=== PATIENT | female | born 1975 | race Caucasian/White ===

== ENCOUNTER → 2017-01-01 | Outpatient (CLI) | payer OTHER | LOC: HPND 14:18 | PROVIDERS: ATTEND Obstetrics & Gynecology | DX: O09.529 Supervision of elderly multigravida, unspecified trimester (principal) | CPT/HCPCS: 76811 ==

== ENCOUNTER → 2017-02-05 | Outpatient (CLI) | payer OTHER | LOC: HPND 12:48 | PROVIDERS: ATTEND Obstetrics & Gynecology | DX: O09.522 Supervision of elderly multigravida, second trimester (principal) | CPT/HCPCS: 76816 ==

== ENCOUNTER 2017-05-22 05:17 | Inpatient (IN) | payer OTHER ==
[~2017-05-22] VITALS: Ht 170.2 cm; Wt 93.0 kg
[2017-05-22] VITALS (58 sets, daily range): BP systolic 118–163; BP diastolic 69–88; PULSE 58–219; RESP 16–18; TEMP 98–99.4
[2017-05-22 06:38] LABS: AUTOMATED NEUTROPHIL # 7.8 TH/MM3 (1.8-7.7); BASOPHIL % 0.3 % (0.0-2.0); EOSINOPHIL # 0.1 TH/MM3 (0-0.4); EOSINOPHIL % 0.8 % (0.0-4.0); HEMATOCRIT 31.3 % (35.0-46.0); HEMO FLAGS DIFF FINAL; LYMPH % 20.7 % (9.0-44.0); LYMPHOCYTE # 2.2 TH/MM3 (1.0-4.8); MEAN CELL VOLUME 87.9 FL (80.0-100.0); MEAN CORPUSCULAR HEMOGLOBIN 29.3 PG (27.0-34.0); MEAN CORPUSCULAR HGB CONC 33.4 % (32.0-36.0); MONO % 5.3 % (0.0-8.0); NEUT % 72.9 % (16.0-70.0); PLATELET COUNT 200 TH/MM3 (150-450); RED BLOOD COUNT 3.56 MIL/MM3 (4.00-5.30); RED CELL DISTRIBUTION WIDTH 16.6 % (11.6-17.2); WHITE BLOOD COUNT 10.7 TH/MM3 (4.0-11.0)
[2017-05-22 07:02] LABS: BACTERIA, URINE FEW /hpf; BLOOD, URINE SMALL (NEG); GLUCOSE,URINE NEG (NEG); HYALINE CAST, URINE 1 /lpf (RARE); KETONE, URINE NEG (NEG); MUCUS URINE FEW /lpf (OCC); NITRITE,URINE NEG (NEG); PH, URINE 6.5 (5.0-8.5); SQUAMOUS EPITHELIAL CELL URINE 3 /hpf (0-5); URINE COLOR YELLOW (YELLW/STRAW)
[2017-05-22 07:21] LABS: COMMENT (UR) CULT NOT INDICATED; CULTURE IF INDICATED CULT NOT INDICATED
[2017-05-22] MEDS ORDERED: OXYTOCIN 30 UNITS-500ML PREMIX 500 ML ONE (08:02)
[2017-05-22] MEDS ORDERED: LACTATED RINGER'S 1000 ML BOLUS IV PRN (08:15)
[2017-05-22] MEDS ORDERED: OXYTOCIN 30 UNITS 500ML PREMIX IV ONE (08:15)
[2017-05-22] MEDS ORDERED: NS 500 ML BOLUS IV PRN (08:15)
[2017-05-22] MEDS ORDERED: NS 1000 ML IV PRN (08:15)
[2017-05-22] MEDS ORDERED: MINERAL OIL 10 ML VIAL TOPICAL PRN (08:15)
[2017-05-22] MEDS ORDERED: LIDOCAINE HCL 1% 50 ML VIAL I-DERMAL PRN (08:15)
[2017-05-22] MEDS ORDERED: CITRIC ACID-SODIUM CITRATE LIQ 30 ML UDC PO SCH (08:15)
[2017-05-22] MEDS ORDERED: LIDOCAINE HCL 1% 50 ML VIAL INFIL PRN (08:15)
[2017-05-22] MEDS: LACTATED RINGER'S 1000 ML IV SCH ×2 (08:39→11:46)
[2017-05-22] MEDS: OXYTOCIN 30 UNITS/NS 500ML PREMIX IV SCH ×2 (08:40→16:08)
[2017-05-22] MEDS ORDERED: fentaNYL 2MCG-BUPIV 0.125% INJ 100 ML ONE (14:06)
[2017-05-22] MEDS ORDERED: DIPHTH/TETANUS/ACEL PERTUSSIS (BOOSTER) 0.5 ML VIAL/PFS IM ONE (16:00)
[2017-05-22] MEDS ORDERED: MEASLES, MUMPS, RUBELLA VACCINE 0.5 ML VIAL SQ ONE (16:00)
[2017-05-22] MEDS ORDERED: PREN29TA PO (16:18)
[2017-05-22] MEDS ORDERED: GLYB2.5T3 PO (16:19)
[2017-05-22] MEDS ORDERED: fentaNYL 2MCG-BUPIV 0.125% 100 ML EPIDURAL SCH (16:30)
[2017-05-22] MEDS ORDERED: ePHEDrine/NS 25 MG/5 ML SYR IV PUSH PRN (16:30)
[2017-05-22] MEDS ORDERED: NO SYSTEM NARCOTICS PRN (16:30)
[2017-05-22] MEDS ORDERED: DO NOT ADMINISTER ANTICOAGULANTS PRN (16:30)
[2017-05-22] MEDS ORDERED: LIDOCAINE HCL 1% 50 ML VIAL ONE (17:51)
[2017-05-22] MEDS ORDERED: SODIUM CHLORIDE 0.9% 20 ML VIAL ONE (17:58)
[2017-05-22] MEDS ORDERED: LIDOCAINE 2%/EPINEPHrine PF 1:200,000 20ML SDV ONE (17:59)
--- NOTE | 2017-05-22 18:59 | PD.OB.DELI ---
Weeks gestation: 39 Gest age assessed date: May 22, 2017 Gest age assessed time: 07:00 Pt started active labor?: No Medical induction of labor?: Yes Medical induction start date: May 22, 2017 Medical induction start time: 07:00 Artificial rupture of membrane: Yes Artificial ROM date: May 22, 2017 Artifical ROM time: 08:00 Anesthesia: Epidural Episiotomy: None Vaginal Delivery: Normal Presentation: Occiput anterior Nuchal Cord: None Delayed cord clamping (45 sec): Yes Infant: Female, Single Delivery date: May 22, 2017 Delivery time: 18:29 One Minute : 8 Five Minute : 9 Weight: 8-11 Placenta: Spontaneous delivery, Intact, 3 vessel cord Laceration: Vaginal laceration, 2 deg Repair: Chromic interrupted, Chromic running Estimated blood loss: 300 cc Kasey Barraza MD May 22, 2017 18:59
[2017-05-22] MEDS ORDERED: ALUMINUM/MAGNESIUM/SIMETH 30 ML CUP PO PRN (19:00)
[2017-05-22] MEDS ORDERED: oxyCODONE/ACETAMINOPHEN 5 MG/325 MG TAB PO PRN (19:00)
[2017-05-22] MEDS ORDERED: ONDANSETRON ODT 4 MG TAB PO PRN (19:00)
[2017-05-22] MEDS ORDERED: DOCUSATE SODIUM 50 MG/SENNA 8.6 MG TAB PO PRN (19:00)
[2017-05-22] MEDS ORDERED: OXYTOCIN 30 UNITS-500ML PREMIX 500 ML IV SCH (19:00)
[2017-05-22] MEDS ORDERED: SODIUM CHLORIDE 0.9% FLUSH 10 ML FLUSH IV FLUSH PRN (19:00)
[2017-05-22] MEDS ORDERED: ZOLPIDEM TARTRATE 5 MG TAB PO PRN (19:00)
[2017-05-22] MEDS ORDERED: ACETAMINOPHEN 325 MG TAB PO PRN (19:00)
--- NOTE | 2017-05-22 19:02 | PD.LABORPN ---
Subjective Subjective delayed entry...750 am pt reports ctxs Objective Vital Signs Vital Signs Date Time Temp Pulse Resp B/P (MAP) Pulse Ox O2 Delivery O2 Flow Rate FiO2 05/22/17 18:12 94 154/85 (108) 05/22/17 17:30 84 136/87 (103) 05/22/17 17:01 18 05/22/17 17:00 70 153/77 (102) 05/22/17 16:45 98.1 05/22/17 16:45 18 05/22/17 16:31 73 159/85 (109) 05/22/17 16:10 74 05/22/17 16:05 76 05/22/17 16:01 78 141/85 (103) 05/22/17 16:00 82 05/22/17 15:55 66 05/22/17 15:50 81 05/22/17 15:46 87 05/22/17 15:46 152/76 (101) 05/22/17 15:45 74 05/22/17 15:41 82 129/72 (91) 05/22/17 15:40 79 05/22/17 15:36 70 147/71 (96) 05/22/17 15:35 86 05/22/17 15:30 64 145/72 (96) 05/22/17 15:26 77 136/71 (92) 05/22/17 15:21 63 140/72 (94) 05/22/17 15:20 80 05/22/17 15:16 67 146/74 (98) 05/22/17 15:15 64 05/22/17 15:14 16 05/22/17 15:05 82 05/22/17 15:01 63 142/69 (93) 05/22/17 15:00 83 05/22/17 14:56 83 130/73 (92) 05/22/17 14:55 90 05/22/17 14:51 87 142/70 (94) 05/22/17 14:50 81 05/22/17 14:46 81 146/73 (97) 05/22/17 14:45 92 05/22/17 14:45 18 05/22/17 14:41 95 142/81 (101) 05/22/17 14:40 86 05/22/17 14:36 82 155/69 (97) 05/22/17 14:35 83 05/22/17 14:30 86 05/22/17 13:04 63 159/87 (111) 05/22/17 12:45 98.6 05/22/17 12:26 72 140/86 (104) 05/22/17 11:51 66 153/82 (105) 05/22/17 11:30 18 Objective Pelvic Exam: Cervix: 3-4/60/-3 AROM with clear fluid Dilatation: [-] Effacement: [-] Station: [-] Presentation: [-] Membranes: [intact or ruptured] Uterine Contractions: [-] FHT's: Category: [-] Baseline: [-] Reactive: [-] Variability: [-] Decels: [-] Weeks Gestation: 39 Gest Age Assessed Date: May 22, 2017 Gest Age Assessed Time: 07:00 Pt started active labor?: No Medical induction of labor?: Yes Medical induction start date: May 22, 2017 Medical induction start time: 07:00 Artificial rupture of membrane: Yes Artificial ROM date: May 22, 2017 Artifical ROM time: 08:00 Assessment/Plan Assessment and Plan 41 yo WF at 39 wks with GDM controlled with glyburide with good sugars for induction 1. begin Kasey Zhao MD May 22, 2017 19:01
--- NOTE | 2017-05-22 19:03 | PD.LABORPN ---
Subjective Subjective late entry...1 pm...pt co pain Objective Vital Signs Vital Signs Date Time Temp Pulse Resp B/P (MAP) Pulse Ox O2 Delivery O2 Flow Rate FiO2 05/22/17 18:12 94 154/85 (108) 05/22/17 17:30 84 136/87 (103) 05/22/17 17:01 18 05/22/17 17:00 70 153/77 (102) 05/22/17 16:45 98.1 05/22/17 16:45 18 05/22/17 16:31 73 159/85 (109) 05/22/17 16:10 74 05/22/17 16:05 76 05/22/17 16:01 78 141/85 (103) 05/22/17 16:00 82 05/22/17 15:55 66 05/22/17 15:50 81 05/22/17 15:46 87 05/22/17 15:46 152/76 (101) 05/22/17 15:45 74 05/22/17 15:41 82 129/72 (91) 05/22/17 15:40 79 05/22/17 15:36 70 147/71 (96) 05/22/17 15:35 86 05/22/17 15:30 64 145/72 (96) 05/22/17 15:26 77 136/71 (92) 05/22/17 15:21 63 140/72 (94) 05/22/17 15:20 80 05/22/17 15:16 67 146/74 (98) 05/22/17 15:15 64 05/22/17 15:14 16 05/22/17 15:05 82 05/22/17 15:01 63 142/69 (93) 05/22/17 15:00 83 05/22/17 14:56 83 130/73 (92) 05/22/17 14:55 90 05/22/17 14:51 87 142/70 (94) 05/22/17 14:50 81 05/22/17 14:46 81 146/73 (97) 05/22/17 14:45 92 05/22/17 14:45 18 05/22/17 14:41 95 142/81 (101) 05/22/17 14:40 86 05/22/17 14:36 82 155/69 (97) 05/22/17 14:35 83 05/22/17 14:30 86 05/22/17 13:04 63 159/87 (111) 05/22/17 12:45 98.6 05/22/17 12:26 72 140/86 (104) 05/22/17 11:51 66 153/82 (105) 05/22/17 11:30 18 Objective Pelvic Exam: Cervix: 5/70/-2 Dilatation: [-] Effacement: [-] Station: [-] Presentation: [-] Membranes: [intact or ruptured] Uterine Contractions: [-] FHT's: Category: 150s with good BTB variabilty, reactive, occ variable, no lates Baseline: [-] Reactive: [-] Variability: [-] Decels: [-] Weeks Gestation: 39 Gest Age Assessed Date: May 22, 2017 Gest Age Assessed Time: 07:00 Pt started active labor?: No Medical induction of labor?: Yes Medical induction start date: May 22, 2017 Medical induction start time: 07:00 Artificial rupture of membrane: Yes Artificial ROM date: May 22, 2017 Artifical ROM time: 08:00 Assessment/Plan Assessment and Plan IUP at 39 wks with GDM for induction 1. continue pitocin , expectant management Kasey Barraza MD May 22, 2017 19:03
--- NOTE | 2017-05-22 19:06 | PD.LABORPN ---
Subjective Subjective late entry 445pm...pt with epidural and comfortable Objective Vital Signs Vital Signs Date Time Temp Pulse Resp B/P (MAP) Pulse Ox O2 Delivery O2 Flow Rate FiO2 05/22/17 18:12 94 154/85 (108) 05/22/17 17:30 84 136/87 (103) 05/22/17 17:01 18 05/22/17 17:00 70 153/77 (102) 05/22/17 16:45 98.1 05/22/17 16:45 18 05/22/17 16:31 73 159/85 (109) 05/22/17 16:10 74 05/22/17 16:05 76 05/22/17 16:01 78 141/85 (103) 05/22/17 16:00 82 05/22/17 15:55 66 05/22/17 15:50 81 05/22/17 15:46 87 05/22/17 15:46 152/76 (101) 05/22/17 15:45 74 05/22/17 15:41 82 129/72 (91) 05/22/17 15:40 79 05/22/17 15:36 70 147/71 (96) 05/22/17 15:35 86 05/22/17 15:30 64 145/72 (96) 05/22/17 15:26 77 136/71 (92) 05/22/17 15:21 63 140/72 (94) 05/22/17 15:20 80 05/22/17 15:16 67 146/74 (98) 05/22/17 15:15 64 05/22/17 15:14 16 05/22/17 15:05 82 05/22/17 15:01 63 142/69 (93) 05/22/17 15:00 83 05/22/17 14:56 83 130/73 (92) 05/22/17 14:55 90 05/22/17 14:51 87 142/70 (94) 05/22/17 14:50 81 05/22/17 14:46 81 146/73 (97) 05/22/17 14:45 92 05/22/17 14:45 18 05/22/17 14:41 95 142/81 (101) 05/22/17 14:40 86 05/22/17 14:36 82 155/69 (97) 05/22/17 14:35 83 05/22/17 14:30 86 05/22/17 13:04 63 159/87 (111) 05/22/17 12:45 98.6 05/22/17 12:26 72 140/86 (104) 05/22/17 11:51 66 153/82 (105) 05/22/17 11:30 18 Objective Pelvic Exam: Cervix: 6/70/-2 Dilatation: [-] Effacement: [-] Station: [-] Presentation: [-] Membranes: [intact or ruptured] Uterine Contractions: [-] FHT's: Category: 150's reactive with ctxs q 3-5 min Baseline: [-] Reactive: [-] Variability: [-] Decels: [-] Weeks Gestation: 39 Gest Age Assessed Date: May 22, 2017 Gest Age Assessed Time: 07:00 Pt started active labor?: No Medical induction of labor?: Yes Medical induction start date: May 22, 2017 Medical induction start time: 07:00 Artificial rupture of membrane: Yes Artificial ROM date: May 22, 2017 Artifical ROM time: 08:00 Kasey Barraza MD May 22, 2017 19:06
[2017-05-22] MEDS ORDERED: DEXTROSE (INFANT/PEDS) GEL 2.5 ML/GM (40%) TUBE ONE (19:37)
[2017-05-22] MEDS: SODIUM CHLORIDE 0.9% FLUSH 10 ML FLUSH IV FLUSH SCH (21:34)
[2017-05-22] MEDS: BENZOCAINE 20% TOPICAL SPRAY 60 ML CAN TOPICAL PRN (22:36)
[2017-05-22] MEDS: WITCH HAZEL 50%/GLYCERIN 12.5% 40 PAD JAR TOPICAL PRN (22:36)
[2017-05-23] MEDS: IBUPROFEN 600 MG TAB PO PRN ×2 (03:52→19:11)
--- NOTE | 2017-05-23 07:56 | HHI.OB ---
Subjective Post Day: 1 Remarks Pt doing well, no pain Objective Vitals/I&O Vital Signs Date Time Temp Pulse Resp B/P (MAP) Pulse Ox O2 Delivery O2 Flow Rate FiO2 05/22/17 21:47 131/71 (91) 05/22/17 21:47 98.8 101 18 05/22/17 20:01 104 160/82 (108) 05/22/17 19:55 99.4 18 05/22/17 19:46 73 157/83 (107) 05/22/17 19:31 75 155/87 (109) 05/22/17 19:16 85 151/83 (105) 05/22/17 19:00 219 141/85 (103) 05/22/17 18:55 18 05/22/17 18:46 144 118/83 (95) 05/22/17 18:12 94 154/85 (108) 05/22/17 17:30 84 136/87 (103) 05/22/17 17:01 18 05/22/17 17:00 70 153/77 (102) 05/22/17 16:45 98.1 05/22/17 16:45 18 05/22/17 16:31 73 159/85 (109) 05/22/17 16:10 74 05/22/17 16:05 76 05/22/17 16:01 78 141/85 (103) 05/22/17 16:00 82 05/22/17 15:55 66 05/22/17 15:50 81 05/22/17 15:46 87 05/22/17 15:46 152/76 (101) 05/22/17 15:45 74 05/22/17 15:41 82 129/72 (91) 05/22/17 15:40 79 05/22/17 15:36 70 147/71 (96) 05/22/17 15:35 86 05/22/17 15:30 64 145/72 (96) 05/22/17 15:26 77 136/71 (92) 05/22/17 15:21 63 140/72 (94) 05/22/17 15:20 80 05/22/17 15:16 67 146/74 (98) 05/22/17 15:15 64 05/22/17 15:14 16 05/22/17 15:05 82 05/22/17 15:01 63 142/69 (93) 05/22/17 15:00 83 05/22/17 14:56 83 130/73 (92) 05/22/17 14:55 90 05/22/17 14:51 87 142/70 (94) 05/22/17 14:50 81 05/22/17 14:46 81 146/73 (97) 05/22/17 14:45 92 05/22/17 14:45 18 05/22/17 14:41 95 142/81 (101) 05/22/17 14:40 86 05/22/17 14:36 82 155/69 (97) 05/22/17 14:35 83 05/22/17 14:30 86 05/22/17 13:04 63 159/87 (111) 05/22/17 12:45 98.6 05/22/17 12:26 72 140/86 (104) 05/22/17 11:51 66 153/82 (105) 05/22/17 11:30 18 05/22/17 10:40 98.0 05/22/17 10:39 18 05/22/17 10:33 61 146/78 (100) 05/22/17 08:59 68 154/77 (102) 05/22/17 08:30 17 05/22/17 08:30 98.2 05/22/17 08:26 61 161/76 (104) 05/22/17 08:17 58 163/88 (113) Objective Remarks GENERAL: Well-nourished, well-developed patient. CARDIOVASCULAR: Regular rate and rhythm without murmurs, gallops, or rubs. RESPIRATORY: Breath sounds equal bilaterally. No accessory muscle use. ABDOMEN/GI: Abdomen soft, non-tender. Fundus: Firm, non-tender at umbilicus. GENITOURINARY: Light to moderate bleeding. EXTREMITIES: No cyanosis or edema, non-tender, without signs of DVT. Medications and IVs Current Medications Medications (Trade) Dose Ordered Sig/Jia Route Start Time Stop Time Status Last Admin Lactated Ringer's 1,000 ml @ 125 mls/hr Q8H IV 05/22/17 08:15 05/22/17 11:46 Lactated Ringer's 1,000 ml @ 3,000 mls/hr BOLUS PRN IV 05/22/17 08:15 Sodium Chloride 500 ml @ 1,000 mls/hr BOLUS PRN IV 05/22/17 08:15 Sodium Chloride 1,000 ml @ 100 mls/hr Q10H PRN IV 05/22/17 08:15 (Bicitra Liq) 30 ml [employer]IC [employer]PER[employer] PO 05/22/17 08:15 05/25/17 08:14 (fentaNYL INJ) 50 mcg Q1H PRN IV PUSH 05/22/17 08:15 05/22/17 10:30 (fentaNYL INJ) 100 mcg Q1H PRN IV PUSH 05/22/17 08:15 (Muri-Lube Oil) 10 ml UNSCH PRN TOPICAL 05/22/17 08:15 Oxytocin 500 ml @ 0 mls/hr TITRATE IV 05/22/17 08:15 05/22/17 16:08 Miscellaneous Information No systemic narcotics to be given except... UNSCH PRN .XX 05/22/17 16:30 05/23/17 16:29 Miscellaneous Information DO NOT ADMINISTER ANY ANTICOAGUL... UNSCH PRN .XX 05/22/17 16:30 05/23/17 16:29 Fentanyl/ Bupivacaine HCl 100 ml @ 11 mls/hr TITRATE EPIDURAL 05/22/17 16:30 05/22/17 17:01 (ePHEDrine/NS 25 MG/5 ML SYR) 10 mg UNSCH PRN IV PUSH 05/22/17 16:30 05/23/17 16:29 (NS Flush) 2 ml BID IV FLUSH 05/22/17 21:00 05/22/17 21:34 (NS Flush) 2 ml UNSCH PRN IV FLUSH 05/22/17 19:00 (Tylenol) 650 mg Q4H PRN PO 05/22/17 19:00 (Motrin) 600 mg Q6H PRN PO 05/22/17 19:00 05/23/17 03:52 (Percocet 5-325 Mg) 1 tab Q4H PRN PO 05/22/17 19:00 (Americaine 20% Top Spr) 1 spray Q4H PRN TOPICAL 05/22/17 19:00 05/22/17 22:36 (Tucks Pads) 1 applic QID PRN TOPICAL 05/22/17 19:00 05/22/17 22:36 (Desirae-Colace) 2 tab Q12H PRN PO 05/22/17 19:00 (Ambien) 5 mg HS PRN PO 05/22/17 19:00 (Mag-Al Plus Susp Liq) 15 ml Q8H PRN PO 05/22/17 19:00 (Zofran Odt) 4 mg Q6H PRN PO 05/22/17 19:00 Assessment/Plan Assessment and Plan PPD # 1 s/p at 39 wks with induction for GDM doing well 1. help 2. routine care Discharge Planning plan for dc tomorrow Kasey Barraza MD May 23, 2017 07:56
[2017-05-23 08:20] VITALS: BP 148/89; PULSE 63; RESP 19; TEMP 97.5
--- NOTE | 2017-05-24 08:19 | HHI.DCPOC ---
Discharge Care Plan Your Health Problems Are: Vaginal delivery Report Symptoms to Your Doctor -Temperature above 100.5 degrees -Redness, of incision or excessive or foul smelling drainage -Unusual pain or calf pain -Increased vaginal bleeding -Painful or difficulty urinating -Feelings of extreme sadness or anxiety after 2 weeks Goals to Promote Your Health * To prevent worsening of your condition and complications * To maintain your health at the optimal level Directions to Meet Your Goals Take your medications as prescribed Follow your dietary instruction Follow activity as directed Ensure plenty of rest for recovery Drink fluids for hydration Keep your appointments as scheduled Take your immunizations and boosters as scheduled If your symptoms worsen call your PCP, if no PCP go to Urgent Care Center or Emergency Room Smoking is Dangerous to Your Health. Avoid second hand smoke Call the 24-hour crisis hotline for domestic abuse at Kasey Barraza MD May 24, 2017 08:19
--- NOTE | 2017-05-24 08:21 | HHI.DS ---
Admission Date May 22, 2017 at 05:17 Discharge Date: May 24, 2017 Admitting Diagnosis Diagnosis: Delivery Date: May 22, 2017 Vaginal Delivery: Normal Infant: Female, Single Pt Condition on Discharge: Good Discharge Disposition: Discharge Home Discharge Instructions Diet Instructions: As Tolerated, No Restrictions Activities You Can Perform: Pelvic Rest Kasey Barraza MD May 24, 2017 08:21
[2017-05-24 08:55] VITALS: BP 172/96; PULSE 67; RESP 20; TEMP 99
[2017-05-24] MEDS: SODIUM CHLORIDE 0.9% FLUSH 10 ML FLUSH IV FLUSH SCH (09:00)
[2017-05-24 09:55] VITALS: BP 158/77; PULSE 87
[2017-05-24] MEDS: WITCH HAZEL 50%/GLYCERIN 12.5% 40 PAD JAR TOPICAL PRN (12:00)
[2017-05-24] MEDS: BENZOCAINE 20% TOPICAL SPRAY 60 ML CAN TOPICAL PRN (12:00)
== END 2017-05-24 15:05 | disposition home or self-care (01) | DRG 775 ==
LOC: H2EB 05:17 → H1EA 21:26
PROVIDERS: ADMIT Obstetrics & Gynecology; ATTEND Obstetrics & Gynecology
PROC: 10E0XZZ Delivery of Products of Conception, External Approach (ICD-10-PCS; principal; 2017-05-22)
PROC: 0KQM0ZZ Repair Perineum Muscle, Open Approach (ICD-10-PCS; 2017-05-22)
PROC: 10907ZC Drainage of Amniotic Fluid, Therapeutic from Products of Conception, Via Natural or Artificial Opening (ICD-10-PCS; 2017-05-22)
PROC: 3E0P3VZ Introduction of Hormone into Female Reproductive, Percutaneous Approach (ICD-10-PCS; 2017-05-22)
DX: O24.425 Gestational diabetes mellitus in childbirth, controlled by oral hypoglycemic drugs (principal); O70.1 Second degree perineal laceration during delivery; Z37.0 Single live birth; Z3A.39 39 weeks gestation of pregnancy
CPT/HCPCS: 59025; 80307; 81001; 82948; 85025; 86900; 86901; J2590; J3010; J7120